=== PATIENT | female | born 1955 | race Caucasian/White ===

== ENCOUNTER 2020-06-16 02:01 | Emergency (ER) | payer MEDICARE, OTHER ==
[~2020-06-16] VITALS: Ht 162.6 cm; Wt 72.6 kg
[2020-06-16 02:05] VITALS: BP_SYST 146
[2020-06-16 03:54] LABS: CALCIUM 8.6 mg/dL (8.4-11.0); CREATININE 0.94 mg/dL (0.55-1.30); POTASSIUM 4.4 mmol/L (3.5-5.1)
[2020-06-16 03:57] VITALS: BP_SYST 142
== END 2020-06-16 03:57 | disposition home or self-care (01) ==
LOC: SED 02:01
DX: I10 Essential (primary) hypertension (principal)
CPT/HCPCS: 36415; 80048; 99283